=== PATIENT | female | born 1990 | race Two or more races ===

== ENCOUNTER 2020-06-21 16:11 | Emergency (ER) | payer BC ==
[~2020-06-21] VITALS: Ht 170.2 cm; Wt 50.3 kg
[2020-06-21 16:15] VITALS: BP 139/74
--- NOTE | 2020-06-21 16:15 | NUR ---
ED Nurse Note: Pt walked in from home c/o laceration on lower lip s/p fall on Wednesday. Pt was intoxicated when she slipped and fell. Respirations even and unlabored on room air. A+Ox4, speaking in complete sentences.
[2020-06-21] MEDS ORDERED: AUGMENTIN 875-1 EAC1 ORAL (16:20)
--- NOTE | 2020-06-21 16:33 | Emergency Room Report ---
History of Present Illness General Chief Complaint: Laceration Source: Patient Present Illness HPI 29-year-old female with history of alcohol abuse here complaining of worsening lip laceration that occurred 1 week ago. Patient reports that she got drunk and fell down on her face. Had a deep cut left lower lip, 2 days later went to an urgent care and was prescribed Augmentin. It was too late to have a laceration repaired. Denies fevers or chills. Patient is also taking Naprosyn and lidocaine viscous. Patient reports that he stopped 1 week ago and has been taking Ativan daily to help with her alcohol withdrawal. Patient reports that she feels better and reports that she is gradually getting over her alcohol intoxication. Patient has a psychiatrist to follow-up with and will be sent started on better anxiety management. Patient does not want medication, that will cause more addiction. Patient is currently taking 1 mg Ativan and night and sometimes has been taking 0.5 and one-point 5 at night. Reports the medication was prescribed to her previously by her doctor. Also avoid alcohol. Patient denies any chest pain, shortness of breath, headache and dizziness at this time. Denies loss of consciousness. Denies . Denies SI and HI Allergies: Coded Allergies: No Known Allergies (Unverified , 06/21/20) COVID-19 Screening Contact w/high risk pt: No Experienced COVID-19 symptoms?: No COVID-19 Testing performed ROD WELDER: No Patient History Past Medical History: see triage record Past Surgical History: none Pertinent Family History: none Social History: Reports: alcohol use Now: No Immunizations: UTD Reviewed Nursing Documentation: PMH: Agreed; PSxH: Agreed Nursing Documentation-PMH Past Medical History: No History, Except For Review of Systems All Other Systems: negative except mentioned in HPI Physical Exam Vital Signs Date Time Temp Pulse Resp B/P (MAP) Pulse Ox O2 Delivery O2 Flow Rate FiO2 06/21/20 16:13 98.1 104 20 149/78 (101) 99 Room Air Sp02 EP Interpretation: reviewed, normal General Appearance: no apparent distress, alert, GCS 15, non-toxic Head: normocephalic, atraumatic Eyes: bilateral eye normal inspection, bilateral eye PERRL ENT: hearing grossly normal, normal pharynx, no angioedema, normal voice Neck: full range of motion, supple/symm/no masses Respiratory: chest non-tender, lungs clear, normal breath sounds, speaking full sentences Cardiovascular #1: regular rate, rhythm, no edema Cardiovascular #2: 2+ carotid (R), 2+ carotid (L), 2+ radial (R), 2+ radial (L), 2+ dorsalis pedis (R), 2+ dorsalis pedis (L) Gastrointestinal: normal bowel sounds, non tender, soft, non-distended, no guarding, no rebound Genitourinary: no CVA tenderness Musculoskeletal: back normal, normal range of motion, no calf tenderness, other - Patient is neurovascularly intact Neurologic: alert, motor strength/tone normal, oriented x3, sensory intact, responsive, speech normal Psychiatric: judgement/insight normal, memory normal, mood/affect normal, no suicidal/homicidal ideation Skin: laceration - healing laceration left lower lip Lymphatic: no adenopathy Medical Decision Making PA Attestation All diagnoses and treatment plans were reviewed and discussed with my supervising physician Dr. Santos Diagnostic Impression: Primary Impression: Healing laceration Additional Impressions: Alcohol withdrawal Anxiety ER Course 29-year-old female with history of alcohol abuse here complaining of worsening lip laceration that occurred 1 week ago. Patient reports that she got drunk and fell down on her face. Had a deep cut left lower lip, 2 days later went to an urgent care and was prescribed Augmentin. It was too late to have a laceration repaired. Denies fevers or chills. Patient is also taking Naprosyn and lidocai ne viscous. Patient reports that he stopped 1 week ago and has been taking Ativan daily to help with her alcohol withdrawal. Patient reports that she feels better and reports that she is gradually getting over her alcohol intoxication. Patient has a psychiatrist to follow-up with and will be sent started on better anxiety management. Patient does not want medication, that will cause more addiction. Patient is currently taking 1 mg Ativan and night and sometimes has been taking 0.5 and one-point 5 at night. Reports the medication was prescribed to her previously by her doctor. Also avoid alcohol. Patient denies any chest pain, shortness of breath, headache and dizziness at this time. Denies loss of consciousness. Denies . Denies SI and HI Ddx considered but are not limited to : Superficial laceration, deep laceration, tendon involvement with laceration, laceration with foreign body Vital signs: are WNL, pt. is afebrile H&PE are most consistent with: Healing close laceration to secondary intention, alcohol withdrawal, anxiety ORDERS: Ibuprofen 800 instead of Naprosyn, Pepcid ED INTERVENTIONS: None DISCHARGE: At this time pt. is stable for d/c to home. Will provide printed patient care instructions, and any necessary prescriptions. Care plan and follow up instructions have been discussed with the patient prior to discharge. Advised patient to continue taking antibiotic, lidocaine viscous, continue taking Ativan and also see psychiatrist for better management of anxiety and alcohol abuse. If worsening symptoms return to the emergency room. Addendum: Few hours after patient was discharged, patient's boyfriend called several times demanding to speak to provider who told the patient to continue taking 25 mg Ativan at home and complaining cough, was not written. I spoke to the patient while patient at the phone on speaker phone with boyfriend basically speaking for her and patient agreed that during her examination patient told me that she has Ativan at home and will continue to take it. Boyienrambo reported that during my physical examination and my visit with the patient patient was on speaker phone and patient's boyfriend listened to entire visit examination as well as consults that I had with patient. Patient also reported that the phone call the lower having was being recorded. Patient boyfriend continue to speak loudly and did not allow me to speak. He kept saying that he was here earlier this month and was given Ativan because he had a seizure activity. When I told patient and patient boyfriend that patient did not have a seizure activity patient boyfriend reported" however letter know if she will not have seizure activity in the future." I notified him that emergency medicine reexamined the patient t for the visit and patient came here for lip laceration follow-up however That patient is more Ativan for her. He kept saying" did you tell her to the take Ativan yes or no. He would not even allow me to talk. I told the patient's boyfriend I discussed everything with the patient patient agreed with my assessment patient will follow up with psychiatrist and needs a better management. Jeremy this time due to the aggressive behavior over the phone and does not allowing me to speak no further patient can return to the emergency room if not feeling better. Follow-up with psychiatrist. Patient appointment for her. Conversation was over via phone patient called again provider again. He also threatened that this is a recorded phone call and he reported everything during examination on the phone, and will use against us.Dr. Santos, my supervising physician was listening to part of the conversation and is aware of the case boyfriend even mentioned that " she does not know what she wants as she is out of it" after I mentioned to him that pt herself told me she has medication at the house. he then said that does not mean she has them at home and they are hers. he said we should have worked her up fully to make sure she wont have sz in the future, though she has no sz hx, and she denies any sz upon arrival and was here for lip laceration follow up Last Vital Signs Date Time Temp Pulse Resp B/P (MAP) Pulse Ox O2 Delivery O2 Flow Rate FiO2 06/21/20 16:13 98.1 104 20 149/78 (101) 99 Room Air Disposition: HOME, SELF-CARE Condition: Stable Scripts Famotidine* (Pepcid 20mg tablet*) 20 Mg Tablet 20 MG ORAL DAILY for Gerd, #30 TAB 0 Refills Prov: Mahsa Kingsley 06/21/20 Ibuprofen (Ibu) 800 Mg Tablet 800 MG PO BID, #30 TAB Prov: Mahsa Kingsley 06/21/20 Patient Instructions: Generalized Anxiety Disorder, Laceration Care, Adult Additional Instructions: Take medication as directed, follow-up with your psychiatrist for better management of anxiety possibly something within the SSRI or SNRI family. Continue taking your 0.5 mg Ativan in the morning and at night in order to overcome her alcohol withdrawal. Avoid drinking alcohol. If worsening symptoms return to the emergency room. Finish antibiotic that was already given. You can use a lidocaine viscous on the affected side. Mahsa Kingsley Jun 21, 2020 16:33
[2020-06-21] MEDS ORDERED: IBU800 MG PO (16:34)
[2020-06-21] MEDS ORDERED: FAMOTIDINE20 MG ORAL (16:34)
[2020-06-21 16:40] VITALS: BP 141/74
--- NOTE | 2020-06-21 16:40 | NUR ---
ED Nurse Note: Pt cleared by health care Provider for discharge. DC instructions/prescriptionw were given and explained to pt and verbalized understanding of teachings. All medical devices such as ID band removed. Pt is AAO x4, ambulatory and left with all personal belongings.
== END 2020-06-21 16:40 | disposition home or self-care (01) ==
LOC: EMR 16:25
DX: S01.511A Laceration without foreign body of lip, initial encounter (principal); F10.239 Alcohol dependence with withdrawal, unspecified; W19.XXXA Unspecified fall, initial encounter; Y92.9 Unspecified place or not applicable
CPT/HCPCS: 99282

== ENCOUNTER 2020-08-26 19:32 | Emergency (ER) | payer BC ==
[~2020-08-26] VITALS: Ht 160 cm; Wt 45.4 kg
[~2020-08-26 19:32] MED LIST: AUGMENTIN 875-1 EAC1 ORAL; FAMOTIDINE20 MG ORAL; IBU800 MG PO
--- NOTE | 2020-08-26 19:34 | NUR ---
ED Nurse Note: spoke with sweetie mother of the patient,
[2020-08-26 19:35] VITALS: BP 121/81
--- NOTE | 2020-08-26 19:35 | NUR ---
ED Nurse Note: Patient brought into ED by [facility] [id number] from home c/o ETOH. at time of arrival, patient is incoherent and rambling words, reports of unknown amount of alcohol ingested, patient is able to answer questions however a bit slurred. patient placed on gurney and IV started on left AC 20 gauge, will continue to monitor
--- NOTE | 2020-08-26 20:02 | Emergency Room Report ---
History of Present Illness General Chief Complaint: Alcohol Intoxication Source: Patient Present Illness HPI 29-year-old female here with possible alcohol intoxication. Paramedics were called to the patient's home by the patient's rudi who said "she was shaking like she had a seizure." Patient however was completely awake and alert and did not appear postictal. However she did smell of alcohol and was slurring her words. Patient however initially denied alcohol or drug use tonight. Patient's rudi says the patient has a history of alcohol abuse. [id number]-cpmw glucose en route to the emergency department was 68. Patient was given juice. She says "I had a seizure in [place] 2 weeks ago. Before that I never had a seizure before." Denies a head injury, vision changes, focal numbness or weakness, fevers, chills, chest pain, palpitation, shortness of breath, back pain, abdominal pain, nausea, vomiting, diarrhea, dysuria. Allergies: Coded Allergies: No Known Allergies (Unverified , 06/21/20) COVID-19 Screening Contact w/high risk pt: No Experienced COVID-19 symptoms?: No COVID-19 Testing performed ASPHALT PATCHER: No Patient History Last Menstrual Period: unk Now: No Nursing Documentation-[facility] Past Medical History: No Stated History Review of Systems All Other Systems: negative except mentioned in HPI Physical Exam Vital Signs Date Time Temp Pulse Resp B/P (MAP) Pulse Ox O2 Delivery O2 Flow Rate FiO2 08/26/20 19:24 97.5 60 18 121/81 (94) 99 Room Air Sp02 EP Interpretation: reviewed, normal General Appearance: no apparent distress, alert, non-toxic Head: normocephalic, atraumatic Eyes: bilateral eye normal inspection, bilateral eye PERRL ENT: hearing grossly normal, normal pharynx, no angioedema, normal voice Neck: full range of motion, supple/symm/no masses Respiratory: chest non-tender, lungs clear, normal breath sounds, speaking full sentences Cardiovascular #1: regular rate, rhythm, no edema Cardiovascular #2: 2+ carotid (R), 2+ carotid (L), 2+ radial (R), 2+ radial (L), 2+ dorsalis pedis (R), 2+ dorsalis pedis (L) Gastrointestinal: normal bowel sounds, non tender, soft, non-distended, no guarding, no rebound Rectal: deferred Genitourinary: normal inspection, no CVA tenderness Musculoskeletal: back normal, normal range of motion, gait/station normal, non- tender Neurologic: alert, motor strength/tone normal, oriented x3, sensory intact, responsive, speech normal, other - Slurred speech, intoxicated, but cooperative and nonfocal neurologic examination Psychiatric: judgement/insight normal, memory normal, mood/affect normal, no suicidal/homicidal ideation, other - Visibly intoxicated, smells of alcohol, but cooperative with examination Lymphatic: no adenopathy Medical Decision Making Diagnostic Impression: Primary Impression: Acute alcoholic intoxication ER Course Ct head: IMPRESSION: Limited exam due to streak artifact. There appears to be ill-defined subcentimeter focus of hypoattenuation in the right basal ganglia which could represent sequela of a lacunar infarct which is age indeterminate. Consider an MRI of the brain to further evaluate if clinically indicated. Laboratory Tests Test 08/26/20 19:40 White Blood Count 9.0 K/UL (4.8-10.8) Red Blood Count 4.55 M/UL (4.20-5.40) Hemoglobin 14.9 G/DL (12.0-16.0) Hematocrit 46.7 % (37.0-47.0) Mean Corpuscular Volume 103 FL (80-99) H Mean Corpuscular Hemoglobin 32.7 PG (27.0-31.0) H Mean Corpuscular Hemoglobin Concent 31.9 G/DL (32.0-36.0) L Red Cell Distribution Width 12.6 % (11.6-14.8) Platelet Count 317 K/UL (150-450) Mean Platelet Volume 7.9 FL (6.5-10.1) Neutrophils (%) (Auto) 39.4 % (45.0-75.0) L Lymphocytes (%) (Auto) 53.0 % (20.0-45.0) H Monocytes (%) (Auto) 5.8 % (1.0-10.0) Eosinophils (%) (Auto) 0.4 % (0.0-3.0) Basophils (%) (Auto) 1.5 % (0.0-2.0) Sodium Level 146 MMOL/L (136-145) H Potassium Level 3.7 MMOL/L (3.5-5.1) Chloride Level 107 MMOL/L (98-107) Carbon Dioxide Level 27 MMOL/L (21-32) Anion Gap 12 mmol/L (5-15) Blood Urea Nitrogen 11 mg/dL (7-18) Creatinine 0.9 MG/DL (0.55-1.30) Estimated Glomerular Filtration Rate > 60 mL/min (>60) Glucose Level 86 MG/DL (74-106) Calcium Level 9.2 MG/DL (8.5-10.1) Total Bilirubin < 0.1 MG/DL (0.2-1.0) L Aspartate Amino Transferase (AST) 41 U/L (15-37) H Alanine Aminotransferase (ALT) 37 U/L (12-78) Alkaline Phosphatase 77 U/L (46-116) Total Protein 7.7 G/DL (6.4-8.2) Albumin 4.0 G/DL (3.4-5.0) Globulin 3.7 g/dL Albumin/Globulin Ratio 1.1 (1.0-2.7) Salicylates Level 1.6 ug/mL (2.8-20) L Urine Opiates Screen Negative (NEGATIVE) Acetaminophen Level < 2 MCG/ML (10-30) L Urine Barbiturates Screen Negative (NEGATIVE) Phencyclidine (PCP) Screen Negative (NEGATIVE) Urine Amphetamines Screen Negative (NEGATIVE) Urine Benzodiazepines Screen Negative (NEGATIVE) Urine Cocaine Screen Negative (NEGATIVE) Urine Marijuana (THC) Screen Negative (NEGATIVE) Serum Alcohol 433 mg/dL 29-year-old female here for alcohol intoxication. CT head was limited from streak artifact from dozens of clips from hair extensions. CT head read from the radiologist indicated that there appeared to be an ill-defined subcentimeter focus of hypoattenuation the right basal ganglia which could represent sequelae of a lacunar infarct that is age indeterminate. However patient is neurologic examination did not reveal any motor or sensory deficits on the ipsilateral or contralateral sides. There was no gaze preference or visual field deficit. Patient did not have aphasia or any spatial neglect. This is likely a false reading secondary to the streak artifact present on the head CT. Patient's alcohol level found to be highly elevated. Patient heavily intoxicated at this time. Will be discharged when clinically sober. Signed out to oncoming physician. Last Vital Signs Date Time Temp Pulse Resp B/P (MAP) Pulse Ox O2 Delivery O2 Flow Rate FiO2 08/26/20 19:24 97.5 60 18 121/81 (94) 99 Room Air Referrals: NON PHYSICIAN (PCP) Rodolfo Ayers M.D. Aug 26, 2020 20:02
[2020-08-26 20:03] LABS: BASOPHILS % (AUTO) 1.5 % (0.0-2.0); EOSINOPHILS % (AUTO) 0.4 % (0.0-3.0); HEMATOCRIT 46.7 % (37.0-47.0); HEMOGLOBIN 14.9 G/DL (12.0-16.0); MEAN CORPUSCULAR VOLUME 103 FL (80-99); MONOCYTES % (AUTO) 5.8 % (1.0-10.0); NEUTROPHILS % (AUTO) 39.4 % (45.0-75.0); PLATELET COUNT 317 K/UL (150-450); RED BLOOD COUNT 4.55 M/UL (4.20-5.40); RED CELL DISTRIBUTION WIDTH 12.6 % (11.6-14.8)
[2020-08-26 20:07] LABS: ANION GAP 12 mmol/L (5-15); BLOOD UREA NITROGEN 11 mg/dL (7-18); CALCIUM 9.2 MG/DL (8.5-10.1); CARBON DIOXIDE 27 MMOL/L (21-32); CHLORIDE 107 MMOL/L (98-107); CREATININE 0.9 MG/DL (0.55-1.30); POTASSIUM 3.7 MMOL/L (3.5-5.1); SODIUM 146 MMOL/L (136-145)
[2020-08-26 20:12] LABS: ALANINE AMINOTRANSFERASE 37 U/L (12-78); ALBUMIN/GLOBULIN RATIO 1.1 (1.0-2.7); ALKALINE PHOSPHATASE 77 U/L (46-116); ASPARTATE AMINO TRANSFERASE 41 U/L (15-37); BILIRUBIN,TOTAL < 0.1 MG/DL (0.2-1.0)
--- NOTE | 2020-08-26 20:15 | Diagnostic Imaging Report ---
EXAM: CT Head Without Intravenous Contrast CLINICAL HISTORY: AMS TECHNIQUE: Axial computed tomography images of the head/brain without intravenous contrast. One or more of the following dose reduction techniques were used: automated exposure control, adjustment of the mA and/or kV according to patient size, use of iterative reconstruction technique. DLP: 938.70; CTDIvol: 53.4 COMPARISON: No relevant prior studies available. FINDINGS: Limitations: Examination is limited by streak artifact from multiple metallic structures overlying the patient's head, however diagnostic information was obtained. Brain: There appears to be ill-defined subcentimeter focus of hypoattenuation in the right basal ganglia. No hemorrhage. No significant white matter disease. Ventricles: Unremarkable. No ventriculomegaly. Bones/joints: Unremarkable. No acute fracture. Soft tissues: See above. Sinuses: Unremarkable as visualized. No acute sinusitis. Mastoid air cells: Unremarkable as visualized. No mastoid effusion. IMPRESSION: Limited exam due to streak artifact. There appears to be ill-defined subcentimeter focus of hypoattenuation in the right basal ganglia which could represent sequela of a lacunar infarct which is age indeterminate. Consider an MRI of the brain to further evaluate if clinically indicated.
--- NOTE | 2020-08-26 22:57 | NUR ---
ED Nurse Note: CRICKET-
[2020-08-27 05:38] VITALS: BP 132/78
--- NOTE | 2020-08-27 05:40 | NUR ---
ER DISCHARGE NOTE: Patient is cleared to be discharged per ERMD, pt is aox4, on room air, with stable vital signs. pt was given dc and prescription instructions, pt was able to verbalize understanding, pt id band removed. pt is able to ambulate with steady gait. pt took all belongings. pt. left with her fiance in [place]
== END 2020-08-27 05:40 | disposition home or self-care (01) ==
LOC: EDBD 19:32 → EMR 19:58
DX: F10.129 Alcohol abuse with intoxication, unspecified (principal); Y90.8 Blood alcohol level of 240 mg/100 ml or more
CPT/HCPCS: 36415; 70450; 80053; 80307; 85025; 93005; 96360; 99284; G0480